=== PATIENT | female | born 1985 | race Caucasian/White ===

== ENCOUNTER 2020-04-07 09:56 | Observation (INO) | payer OTHER ==
[2020-04-07 11:03] VITALS: PULSE 104
[2020-04-07 11:07] LABS: Appearance CLOUDY (CLEAR); Bacteria PACKED /HPF (NEGATIVE); Bilirubin NEGATIVE (NEGATIVE); Blood LARGE Ery/ul (0-5); Epithelial Cells MODERATE /HPF (FEW); Glucose NEGATIVE (NEGATIVE); Ketones SMALL (NEGATIVE); Leukocyte Esterase LARGE (NEGATIVE); Mucus SLIGHT /HPF (NEGATIVE); Nitrite NEGATIVE (NEGATIVE); Protein,Urine Dip 30 (Negative); RBC 51-100 /HPF (0-2); Urobilinogen NEGATIVE mg/dL (0-1); WBC >100 /HPF (0-5)
[2020-04-07 11:33] LABS: Amphetamine,Urine NEGATIVE (NEGATIVE); Barbiturate,Urine NEGATIVE (NEGATIVE); Benzodiazepine,Urine NEGATIVE (NEGATIVE); Cocaine,Urine NEGATIVE (NEGATIVE); Methadone,Urine NEGATIVE (NEGATIVE); Opiate,Urine NEGATIVE (NEGATIVE); PCP,Urine NEGATIVE (NEGATIVE); THC,Urine NEGATIVE (NEGATIVE)
[2020-04-07 12:01] VITALS: BP 132/83
== END 2020-04-07 11:55 | disposition home or self-care (01) ==
LOC: OB 09:56
PROVIDERS: ADMIT Family Medicine; ATTEND Family Medicine
DX: Z34.03 Encounter for supervision of normal first pregnancy, third trimester (principal)
CPT/HCPCS: 80307; 81001; 87086; G0378

== ENCOUNTER 2020-04-07 22:23 | Inpatient (IN) | payer OTHER ==
[2020-04-07] MEDS ORDERED: OMNIPEN 2 GM ONE (22:53)
[2020-04-07] MEDS ORDERED: PITOCIN 30 UNITS/ LR 500 ML 500 ML IV ONE (22:53)
[2020-04-07] MEDS ORDERED: Sodium Chloride 100ML MINI-BAG PLUS 100 ML IV ONE (22:54)
[2020-04-07] MEDS ORDERED: Lactated Ringers 0 ML IV ONE (22:55)
[2020-04-07] MEDS ORDERED: XYLOCAINE 1% HCL 20 ML MDV IJ PRN (23:18)
[2020-04-07] MEDS ORDERED: OMNIPEN 2 GM*** 2 G in Sodium Chloride 100ML MINI-BAG PLUS 100 ML IV ONE (23:18)
[2020-04-07] MEDS ORDERED: XYLOCAINE 1% HCL 20 ML MDV ONE (23:18)
[2020-04-07 23:24] LABS: Absolute Neutrophil Ct (ANC) 16.77 (1.4-6.9); BASOPHIL % 0.1 % (0.0-0.4); Basophil (Absolute #) 0.01 (0-0.4); Eosinophil (Absolute #) 0 (0-0.5); Hematocrit 37.8 % (35-47); Hemoglobin 13.3 gm/dl (12.0-16.0); Lymphocyte (Absolute #) 0.94 (1.0-4.6); Lymphocytes % 5.1 % (24.0-44.0); Mean Cell Volume 91.3 fl (78-100); Mean Corpuscular Hemoglobin 32.1 pg (26-32); Mean Corpuscular Hgb Concent. 35.2 g/dl (32-36); Mean Platelet Volume 11.4 fl (7.5-11.0); Monocyte (Absolute #) 0.62 (0.0-1.3); Monocytes % 3.4 % (0.0-12.0); Neutrophil % 91.4 % (36.0-66.0); Platelet Count 288 K/mm3 (150-450); Red Blood Count 4.14 M/mm3 (4.1-5.4); Red Cell Distribution Width 13.2 % (11.5-14.0); White Blood Count 18.3 K/mm3 (4.0-10.5)
[2020-04-07] MEDS ORDERED: Lactated Ringers 1,000 ML IV SCH (23:30)
[2020-04-07] MEDS ORDERED: PITOCIN 30 UNITS/ LR 500 ML 30 UNITS/500 ML IV.SOLN. IV SCH (23:30)
[2020-04-08] MEDS ORDERED: OMNIPEN 1 GM*** 1 GM in Sodium Chloride 100ML MINI-BAG PLUS 100 ML IV SCH (03:00)
[2020-04-08] MEDS ORDERED: OMNIPEN 1 GM ONE (03:03)
[2020-04-08] MEDS ORDERED: Sodium Chloride 100ML MINI-BAG PLUS 0 ML IV ONE (03:05)
[2020-04-08] MEDS ORDERED: SOD CITRATE-CITRIC ACID SOLN PO ONE (03:08)
[2020-04-08] MEDS ORDERED: Lactated Ringers 1,000 ML IV ONE (03:09)
[2020-04-08] MEDS ORDERED: Reglan 10 MG/2 ML IV SCH (03:15)
[2020-04-08] MEDS ORDERED: Pepcid 20 MG VIAL IV SCH (03:15)
[2020-04-08 03:47] LABS: INR 1.02 (0.8-3.0); PROTIME 11.5 SECONDS (9.95-12.35)
[2020-04-08 03:49] LABS: PTT 26.9 SECONDS (25.3-37.0)
[2020-04-08] MEDS ORDERED: CEFAZOLIN 2 GM-D5W BAG** 2 GM/50 ML ML IV SCH (04:00)
[2020-04-08] MEDS ORDERED: Astramorph-Pf 5 MG/10 ML ONE (04:03)
[2020-04-08 04:08] LABS: ABO TYPING B; Antibody Screen NEGATIVE (NEGATIVE); RH TYPING POSITIVE
[2020-04-08] MEDS ORDERED: SUBLIMAZE 250 MCG/5 ML ONE (04:16)
[2020-04-08] MEDS ORDERED: DIPRIVAN 200 MG/20 ML IV ONE (04:16)
[2020-04-08] MEDS ORDERED: Pitocin 10 UNITS/ML ONE ×2 (04:31→04:55)
[2020-04-08] MEDS ORDERED: Zemuron 100 MG/10 ML ONE (04:34)
[2020-04-08] MEDS ORDERED: Marcaine 0.5%/Epinephrine 10 ML ONE (05:16)
[2020-04-08] MEDS ORDERED: MARCAINE 0.5%-EPI 1:200,000 VL IJ ONE (05:16)
[2020-04-08] MEDS ORDERED: DEMEROL 50 MG ONE (05:47)
[2020-04-08] MEDS ORDERED: TRANDATE 100 MG/20 ML MDV FOR DRIP IV ONE (06:08)
--- NOTE | 2020-04-08 06:40 | PCM.NOTE ---
Date and Time: 04/08/20633 Subjective Assessment: pt arrived in spontaneous labor at 39 2/7 wks EGA, GBS + and was given ampicillin on arrival. she was fiorella regularly on her own with intact membranes. she was 7cm on arrival and quickly progressed to 9cm per nursing. her heart tracing had some variable decelerations but overall good variabili ty, patient pushed for approximately 2 1/2 hours and was unable to delivery vaginally, she did not receive any IV pain meds or epidural during labor. the infant's head was at the perineum, kiwi vaccum was attempted x 2 with pop-off and no improvement in delivery. following these efforts, due to arrest of descent, she was taken to the operating room for primary section. she was unable to sit up for spinal due to discomfort so underwent general anesthesia after she was prepped and draped. upon entry in to uterine cavity was discolored purple and limp and had no respiratory effort present at . the child underwent CPR and was intubated in the OR, received epinephrine x 3 doses total via ET tube and eventually UVC placed by Dr Santoyo ER physician. code was called due to lack of response and was pronounced . the remainder of the section was uncomplicated, there was some blood present in the pastrana cath following surgery which is not unexpected due to low position. of note mother was diagnosed and started on keflex for UTI yesterday. patient declined referral to [facility] for advanced maternal age and declined more invasive genetic testing when offered during the . Objective Exam General Appearance: no apparent distress, other (gravid abdomen on arrival) Respiratory Exam: normal breath sounds, lungs clear, No respiratory distress Cardiovascular Exam: regular rate/rhythm, normal heart sounds Gastrointestinal/Abdomen Exam: soft, No tenderness, No mass Extremity Exam: normal inspection, normal range of motion OBJECTIVE DATA Vital Signs: Vital Signs - 24 hr Temp Pulse Resp BP BP Pulse Ox 04/08/20 04:33 98.3 F 111 H 22 151/78 98 04/07/20 23:30 119 H 20 138/79 98 Lab Results: Lab Results-Last 24 Hours 04/07/20 04/08/20 04/08/20 Range/Units 23:00 00:00 03:28 WBC 18.3 H (4.0-10.5) K/mm3 RBC 4.14 (4.1-5.4) M/mm3 Hgb 13.3 (12.0-16.0) gm/dl Hct 37.8 (35-47) % MCV 91.3 (78-100) fl MCH 32.1 H (26-32) pg MCHC 35.2 (32-36) g/dl RDW 13.2 (11.5-14.0) % Plt Count 288 (150-450) K/mm3 MPV 11.4 H (7.5-11.0) fl Gran % 91.4 H (36.0-66.0) % Eos # (Auto) 0 (0-0.5) Absolute Lymphs (auto) 0.94 L (1.0-4.6) Absolute Monos (auto) 0.62 (0.0-1.3) Lymphocytes % 5.1 L (24.0-44.0) % Monocytes % 3.4 (0.0-12.0) % Eosinophils % 0.0 (0.00-5.0) % Basophils % 0.1 (0.0-0.4) % Absolute Granulocytes 16.77 H (1.4-6.9) Basophils # 0.01 (0-0.4) PT 11.5 (9.95-12.35) SECONDS INR 1.02 (0.8-3.0) APTT 26.9 (25.3-37.0) SECONDS ABO Group B Rh Factor POSITIVE Antibody Screen NEGATIVE (NEGATIVE) Multi-Disciplinary Progress Notes: Multi-Disciplinary Progress Notes 04/08/20 06:03 Respiratory Note by Mima Andrade RT called for standby for delivery. Unable to deliver after pushing for period of time. Physician order to go to [facility]. Immediately after delivery (0435), scores were zero with no heart tones or spontaneous respirations. Warm, dried, stimulated baby. Suctioned mouth and nose. PPV initiated, followed by CPR. No response to PPV. Intubation attempt by RT, unsuccessful. Anesthesia attempt successful with bilateral breath sounds with a 3.0 Et-tube. Epi given via Et-Tub e. Umbilical line placed by physician. Code discontinued at 0458. Initialized on 04/08/20 06:03 - END OF NOTE Assessment/Plan (1) delivery delivered Current Visit: Yes Status: Acute Code(s): O82 - ENCOUNTER FOR DELIVERY WITHOUT INDICATION (2) Delivery outcome of stillborn Current Visit: Yes Status: Acute Code(s): Z37.1 - SINGLE STILLBIRTH
[2020-04-08] MEDS: Dextrose 5%-Lr IV Solution 1000 ML 1,000 ML IV SCH ×3 (06:50→23:22)
[2020-04-08 09:18] LABS: Appearance SLIGHTLY CLOUDY (CLEAR); Bacteria RARE /HPF (NEGATIVE); Bilirubin NEGATIVE (NEGATIVE); Blood LARGE Ery/ul (0-5); Glucose NEGATIVE (NEGATIVE); Ketones MODERATE (NEGATIVE); Leukocyte Esterase NEGATIVE (NEGATIVE); Mucus SLIGHT /HPF (NEGATIVE); Nitrite NEGATIVE (NEGATIVE); Protein,Urine Dip 30 (Negative); Urobilinogen NEGATIVE mg/dL (0-1)
[2020-04-08] MEDS ORDERED: Mylicon 80MG PO PRN (09:18)
[2020-04-08 09:24] LABS: RBC >101 /HPF (0-2)
[2020-04-08] MEDS ORDERED: Nubain 10 MG/ML IV PRN (09:24)
[2020-04-08] MEDS ORDERED: CLARITIN 10 MG PO PRN (09:24)
[2020-04-08] MEDS ORDERED: Zofran 4 MG/2 ML VIAL IV PRN (09:24)
[2020-04-08] MEDS ORDERED: HOLD NARCOTIC ANALGESICS AND SEDATIVES X24 HR MC PRN (09:24)
[2020-04-08] MEDS ORDERED: BENADRYL 50 MG/ML IV PRN (09:24)
[2020-04-08] MEDS ORDERED: Narcan 0.4 MG/ML IV PRN (09:24)
[2020-04-08] MEDS ORDERED: DEMEROL 50 MG IV PRN (09:24)
[2020-04-08] MEDS ORDERED: MORPHINE SULFATE 2 MG INJ IV PRN (09:24)
[2020-04-08] MEDS ORDERED: Dermoplast Spray TP PRN (10:00)
[2020-04-08] MEDS ORDERED: KEFLEX 500 MG PO SCH (10:00)
[2020-04-08] MEDS: TYLENOL EXTRA STRENGTH 500 MG PO PRN ×2 (11:16→20:36)
[2020-04-08] MEDS: ROCEPHIN 1 Gm-D5w 50 ml Bag** 1 G/50 ML IVPB IV SCH (11:17)
[2020-04-08] MEDS: MOTRIN 400 MG PO PRN ×2 (13:06→20:35)
[2020-04-08] MEDS ORDERED: Sodium Chloride 0.9% 10 ML FLUSH Syringe IJ SCH (14:00)
[2020-04-08] MEDS ORDERED: PERCOCET TABLET 5/325MG PO PRN (15:00)
[2020-04-08] MEDS: Colace 100 MG PO SCH (22:31)
[2020-04-09] MEDS: TYLENOL EXTRA STRENGTH 500 MG PO PRN ×4 (00:46→22:16)
[2020-04-09] MEDS: MOTRIN 400 MG PO PRN ×2 (04:08→14:51)
[2020-04-09 06:28] LABS: Absolute Neutrophil Ct (ANC) 16.09 (1.4-6.9); BASOPHIL % 0.1 % (0.0-0.4); Basophil (Absolute #) 0.01 (0-0.4); Eosinophil % 0.1 % (0.00-5.0); Eosinophil (Absolute #) 0.01 (0-0.5); Hematocrit 27.1 % (35-47); Hemoglobin 9.2 gm/dl (12.0-16.0); Lymphocyte (Absolute #) 0.96 (1.0-4.6); Lymphocytes % 5.4 % (24.0-44.0); Mean Cell Volume 94.1 fl (78-100); Mean Corpuscular Hemoglobin 31.9 pg (26-32); Mean Corpuscular Hgb Concent. 33.9 g/dl (32-36); Mean Platelet Volume 10.7 fl (7.5-11.0); Monocyte (Absolute #) 0.79 (0.0-1.3); Monocytes % 4.4 % (0.0-12.0); Platelet Count 244 K/mm3 (150-450); Red Blood Count 2.88 M/mm3 (4.1-5.4); Red Cell Distribution Width 13.8 % (11.5-14.0); White Blood Count 17.9 K/mm3 (4.0-10.5)
[2020-04-09] MEDS: ROCEPHIN 1 Gm-D5w 50 ml Bag** 1 G/50 ML IVPB IV SCH (09:52)
[2020-04-09] MEDS: FERREX 150 PO SCH (09:52)
[2020-04-09] MEDS: Colace 100 MG PO SCH (10:38)
--- NOTE | 2020-04-09 11:17 | PCM.NOTE ---
Date and Time: 04/09/20 1114 Subjective Assessment: mild lochia, pain controlled and feels ok. tolerating po intake and no problems voiding. Objective Exam General Appearance: no apparent distress, alert Respiratory Exam: normal breath sounds, lungs clear, No respiratory distress Cardiovascular Exam: regular rate/rhythm, normal heart sounds Gastrointestinal/Abdomen Exam: other (incision c/d/i, well approximated) Extremity Exam: normal inspection, normal range of motion OBJECTIVE DATA Vital Signs: Vital Signs - 24 hr Temp Pulse Resp BP Pulse Ox 04/09/20 08:00 98.4 F 106 H 18 122/75 04/09/20 06:00 105 H 122/61 98 04/09/20 05:03 106 H 121/70 97 04/09/20 04:00 98.6 F 101 H 18 123/70 106 H 04/09/20 03:00 108 H 20 113/68 97 04/09/20 02:00 98.6 F 104 H 18 132/84 98 04/09/20 01:00 96 H 137/79 98 04/09/20 00:00 110 H 20 138/85 98 04/08/20 23:00 107 H 20 122/73 98 04/08/20 22:00 100 H 18 146/65 97 04/08/20 21:00 98 04/08/20 20:00 98.2 F 141 H 18 141/93 98 04/08/20 17:53 98.3 F 121 H 20 129/87 97 04/08/20 17:00 96 04/08/20 16:00 98.3 F 118 H 20 126/62 04/08/20 15:01 96 04/08/20 14:00 97 04/08/20 13:00 97 04/08/20 12:00 98.2 F 129 H 20 131/74 97 04/08/20 11:57 97 Pain Assessment - Last Documented Pain Intensity [Bilateral 4 Lower] Pain Intensity 4 Pain Scale Used 0-10 Pain Scale Intake and Output: Intake & Output 04/06/20 04/07/20 04/08/20 04/09/20 11:59 11:59 11:59 11:59 Intake Total 2672 4771 Output Total 200 5100 Balance 2472 -329 Weight 79.832 kg Lab Results: Lab Results-Last 24 Hours 04/09/20 Range/Units 05:20 WBC 17.9 H (4.0-10.5) K/mm3 RBC 2.88 L (4.1-5.4) M/mm3 Hgb 9.2 L D (12.0-16.0) gm/dl Hct 27.1 L (35-47) % MCV 94.1 (78-100) fl MCH 31.9 (26-32) pg MCHC 33.9 (32-36) g/dl RDW 13.8 (11.5-14.0) % Plt Count 244 (150-450) K/mm3 MPV 10.7 (7.5-11.0) fl Gran % 90.0 H (36.0-66.0) % Eos # (Auto) 0.01 (0-0.5) Absolute Lymphs (auto) 0.96 L (1.0-4.6) Absolute Monos (auto) 0.79 (0.0-1.3) Lymphocytes % 5.4 L (24.0-44.0) % Monocytes % 4.4 (0.0-12.0) % Eosinophils % 0.1 (0.00-5.0) % Basophils % 0.1 (0.0-0.4) % Absolute Granulocytes 16.09 H (1.4-6.9) Basophils # 0.01 (0-0.4) Assessment/Plan (1) delivery delivered Current Visit: Yes Status: Acute Code(s): O82 - ENCOUNTER FOR DELIVERY WITHOUT INDICATION (2) Delivery outcome of stillborn infant Current Visit: Yes Status: Acute Assessment & Plan: offered emotional support, patient reports the staff has been very supportive and she is coping with the loss, she is understandably sad and tearful. reinforced that there was no obvious cause but something sudden like a cord accident or abruption was most likely and could not have been predicted or prevented. Code(s): Z37.1 - SINGLE STILLBIRTH
[2020-04-10] MEDS: Colace 100 MG PO SCH ×2 (02:01→10:57)
--- NOTE | 2020-04-10 09:03 | PCM.DS ---
Discharge Summary Date of Admission: 04/07/20 22:23 Admitting Physician: EDIN PEPE Consults: Consults on Case 04/08/20 03:08 Notify Anesthesia Provider ROUTINE 04/08/20 09:25 Notify Anesthesia Provider PRN Primary Care Provider: CAL CAAL Allergies Allergies No Known Drug Allergies Allergy (Verified 04/08/20 18:43) Hospital Summary - Hospital Course Hospital Course: patient admitted with near complete dilation in labor, progressed to complete and unable to delivery vaginally. taken for section and baby was blow with no pulse or respiratory effort at . resuscitation efforts were uns uccessful. she has done well post-operatively, no fever. - Vitals & Intake/Output Vital Signs: Vital Signs Temperature 97.8 F 04/10/20 01:50 Pulse Rate 92 H 04/10/20 01:50 Respiratory Rate 18 04/10/20 01:50 Blood Pressure 126/62 04/10/20 01:50 O2 Sat by Pulse Oximetry 97 04/10/20 01:50 Intake & Output: Intake & Output 04/07/20 04/08/20 04/09/20 04/10/20 11:59 11:59 11:59 11:59 Intake Total 2672 4771 520 Output Total 200 5100 Balance 2472 -329 520 Weight 79.832 kg 176 kg - Lab Result Diagrams: 04/09/20 05:20 Micro Results-Entire Visit: Microbiology 04/08/20 04:23 Urine Culture - Final Urine, Catheterized NO GROWTH - Procedures and Test Procedures and Tests throughout Hospitalization: Therapy Orders & Screens 04/08/20 06:01 Standby ROUTINE Comment: Diagnosis: OB check 04/08/20 06:15 EKG ONCE Comment: Diagnosis: OB check Discharge Exam General Appearance: no apparent distress, alert Respiratory Exam: normal breath sounds, lungs clear, No respiratory distress Cardiovascular Exam: regular rate/rhythm, normal heart sounds Gastrointestinal/Abdomen Exam: other (incision clean,dry, intact and well approximated) Extremity Exam: normal inspection, normal range of motion Skin Exam: normal color, warm, dry Final Diagnosis/Problem List - Final Discharge Diagnosis/Problem (1) delivery delivered Current Visit: Yes Status: Acute Assessment & Plan: f/u 1 week, discussed incision care Code(s): O82 - ENCOUNTER FOR DELIVERY WITHOUT INDICATION (2) Delivery outcome of stillborn infant Current Visit: Yes Status: Acute Code(s): Z37.1 - SINGLE STILLBIRTH (3) UTI (urinary tract infection) Current Visit: Yes Status: Acute Assessment & Plan: culture was negative Code(s): N39.0 - URINARY TRACT INFECTION, SITE NOT SPECIFIED - Discharge Disposition: Home, Self-Care Condition: Stable Prescriptions: [place] Polysaccharides Complex [Ferrex 150] 150 mg PO DAILY #30 capsule Hydrocodone/APAP 5-325 Tab^^^ [[place] 5-325 Tablet^^^] 1 tab PO Q6HPRN PRN #20 tablet MDD 6 PRN Reason: Pain Continue Vit#96/Ferrous Fum/FA [ Tablet] 1 tab PO DAILY Discontinued Cephalexin Mh 500 mg [Keflex 500 mg] 500 mg PO QID Follow up with: CAL CAAL MD [Primary Care Provider] - 1 Week
[2020-04-10 09:57] VITALS: BP 133/72; PULSE 119; O2SAT 98
--- NOTE | 2020-04-10 10:46 | OP ---
SURGERY DATE/TIME: 04/08/2020 0413 PREOPERATIVE DIAGNOSES: 1) Term intrauterine . 2) Arrest of descent. POSTOPERATIVE DIAGNOSES: 1) Term intrauterine . 2) Arrest of descent. 3) demise. PROCEDURE: Primary low transverse section. SURGEON: Ruy Salguero M.D. ANESTHESIA: General by Steve Hunt CRNA. ESTIMATED BLOOD LOSS: 400 ml. URINE OUTPUT: 200 ml of blood-tinged urine in the Franco. SPECIMEN: Placenta was sent for pathology. DESCRIPTION OF PROCEDURE: The patient is a 34 year-old 1, para 0 who arrived in spontaneous labor at approximately 7 cm dilatation per nursing report. She progressed to 9 cm dilatation fairly rapidly and had no anesthesia during the labor process. She progress to full dilatation and was unsuccessful delivering vaginally. After approximately two and a half hours of pushing with inability to deliver I called the operating team to perform section. She was unable to sit up to tolerate spinal anesthesia in the operating room upon arrival therefore decision was made to proceed with general anesthesia. After she underwent general anesthetic, a low transverse skin incision was made by knife and carried down through the subcutaneous fat to the level of the fascia. The fascia was nicked on both sides of the midline and extended in horizontal using curved Fairchild scissors. The superior free edge of the fascia was grasped with Raj clamps and the underlying rectus muscles were dissected free and the same was repeated inferiorly. The peritoneal cavity was opened and extended in horizontal bluntly. A bladder blade was inserted after a bladder flap was created and reflected over the lower uterine segment. Horizontal uterine incision was made by knife and carried down to the level of the amniotic membranes which were carefully artificially ruptured. A male in the vertex presentation was encountered upon entry and was noted to have blue and purple discoloration to the skin upon entry into the uterine cavity diffusely. There was some difficulty in delivering him from the vertex presentation due to low position in the pelvis from previous labor and pushing. Therefore the uterine incision was extended superiorly in a barney fashion with bandage scissors and the infant was delivered from the vertex presentation. The cord was clamped and cut and he was quickly handed off to the awaiting nursery team as there was no movement and no respiratory effort present at delivery. The placenta was manually extracted and the uterus was exteriorized. The uterus was sponge curetted clean with lap sponge and then the uterine incision was closed with 0 chromic in a running locked fashion. Good hemostasis and good closure were achieved. Posterior cul-de-sac was wiped free of blood and clot with a moist lap sponge and then the uterus was returned to the peritoneal cavity. The lateral gutters were wiped free of blood and clot. The uterine incision was inspected and noted to be hemostatic. Next, the fascia was closed with 0 Vicryl in a running fashion with good closure and good hemostasis. The subcutaneous fat was irrigated with warm, sterile saline and any areas of bleeding were cauterized with electrocautery. Finally, the skin layer was closed with 4-0 undyed Vicryl in a running subcuticular fashion. Steri-Strips and occlusive dressing were placed over the incision. The patient was extubated and taken to the recovery room in excellent condition.
[2020-04-10] MEDS: FERREX 150 PO SCH (10:51)
== END 2020-04-10 12:20 | disposition home or self-care (01) | DRG 786 ==
LOC: OBSVTOIN 22:23 → OB 22:23 → MED SURG 04-09 22:32
PROVIDERS: ADMIT Family Medicine; ATTEND Family Medicine
PROC: 10D00Z1 Extraction of Products of Conception, Low, Open Approach (ICD-10-PCS; principal; 2020-04-08)
DX: O75.0 Maternal distress during labor and delivery (principal); O75.3 Other infection during labor; O62.1 Secondary uterine inertia; Z3A.39 39 weeks gestation of pregnancy; Z37.1 Single stillbirth
CPT/HCPCS: 31500; 36415; 64488; 76937; 76942; 80307; 81001; 85025; 85610; 85730; 86850; 86900; 86901; 87086; 87340; 88307; 93005; 94799; 99140; G0378; J0290; J0690; J0696; J2175; J2274; J2405; J2590; J2704; J3010; A9270-GY

== ENCOUNTER 2021-07-18 14:54 | Emergency (ER) | payer OTHER ==
--- NOTE | 2021-07-18 15:02 | ERPHSYRPT ---
- History of Present Illness Time Seen by Provider: 07/18/21 15:01 Source: patient Exam Limitations: no limitations Physician History: This is a 35-year-old white female who had been having complaints of mild cough and diarrhea. She had mild myalgias and arthralgias. Symptoms have been persistent. She has had no nausea vomiting. However she has had diarrhea. She denies chest pain. She has no shortness of breath. She has had no fevers. Her spouse has similar symptoms. Patient states she has been eating and drinking. Timing/Duration: week(s) (1) Severity: mild Associated Symptoms: cough (Mild), weakness, No nausea, No vomiting, No abdominal pain, No shortness of breath (Mild), No chest pain Allergies/Adverse Reactions: No Known Drug Allergies Allergy (Verified 04/08/20 18:43) Travel Risk - International Travel Have you traveled outside of the country in past 3 weeks: No - Coronavirus Screening Are you exhibiting any of the following symptoms?: Yes Symptoms: Cough: New Onset, Shortness of Breath, Vomiting/Diarrhea, Headaches/Body Aches/Fatigue Close contact with a COVID-19 positive Pt in past 14-21 Days: No - Review of Systems Constitutional: Weakness Eyes: No Symptoms Ears, Nose, & Throat: No Symptoms Respiratory: Cough Cardiac: No Symptoms Abdominal/Gastrointestinal: Diarrhea, No Abdominal Pain, No Nausea, No Vomiting Genitourinary Symptoms: No Symptoms Musculoskeletal: No Symptoms, Arthralgias, Myalgias Skin: No Symptoms Neurological: No Symptoms Psychological: No Symptoms Endocrine: No Symptoms Hematologic/Lymphatic: No Symptoms Immunological/Allergic: No Symptoms All Other Systems: Reviewed and Negative - Past Medical History Pertinent Past Medical History: No Other Medical History: Patient denies any of the above. - Past Surgical History Past Surgical History: Yes Neuro Surgical History: No Pertinent History Cardiac: No Pertinent History Respiratory: No Pertinent History Gastrointestinal: No Pertinent History Genitourinary: No Pertinent History Musculoskeletal: No Pertinent History Female Surgical History: No Pertinent History - Social History Smoking Status: Never smoker Exposure to second hand smoke: No Drug Use: none - Nursing Vital Signs Nursing Vital Signs: Initial Vital Signs Temperature 100.8 F 07/18/21 15:23 Pulse Rate 121 H 07/18/21 15:23 Respiratory Rate 24 07/18/21 15:23 Blood Pressure 147/95 07/18/21 15:23 O2 Sat by Pulse Oximetry 96 07/18/21 15:23 Pain Scale Pain Intensity 0 - Physical Exam General Appearance: no apparent distress, alert, anxiety, obese Eye Exam: PERRL/EOMI, eyes nml inspection Ears, Nose, Throat Exam: normal ENT inspection, moist mucous membranes Neck Exam: normal inspection, non-tender, supple, full range of motion Respiratory Exam: normal breath sounds, lungs clear, airway intact, No chest tenderness, No respiratory distress Cardiovascular Exam: normal peripheral pulses, tachycardia Gastrointestinal/Abdomen Exam: soft, normal bowel sounds, No tenderness Pelvic Exam: not done Rectal Exam: not done Back Exam: normal inspection, normal range of motion, No CVA tenderness, No vertebral tenderness Extremity Exam: normal inspection, normal range of motion, pelvis stable Neurologic Exam: alert, oriented x 3, cooperative, pharmacy technician instructor II-XII nml as tested, normal mood/affect, nml cerebellar function, nml station & gait, sensation nml Skin Exam: normal color, warm, dry Lymphatic Exam: No adenopathy SpO2 Interpretation: normal O2 Delivery: Room Air - Course Nursing assessment & vital signs reviewed: Yes Ordered Tests: Active Orders 24 hr Category Date Time Status INFLUENZA A+B CARMEN Stat Lab 07/18/21 16:25 Completed Lab/Rad Data: Laboratory Results 07/18/21 07/18/21 Range/Units 16:26 16:25 Influenza Type A Ag NEGATIVE (NEGATIVE) Influenza Type B Ag NEGATIVE (NEGATIVE) Group A Strep Antibody NOT DETECTED (NEGATIVE) - Progress Progress: unchanged Counseled pt/family regarding: lab results, diagnosis, need for follow-up - Departure Departure Disposition: Home Clinical Impression: Diarrhea, Viral illness Condition: Stable Critical Care Time: No Referrals: CAL CAAL MD [Primary Care Provider] - Follow up/PCP as directed Additional Instructions: May fill the Flagyl prescription once you drop off the stool specimen and if your symptoms persist beyond the next 48 hours. Drink plenty of fluids. Take your medication as prescribed. Follow-up with your primary care physician for persistent symptoms. Bring in a stool specimen for evaluation. Take it to the [facility] lab. Prescriptions: Metronidazole 500 mg [Flagyl 500 MG] 500 mg PO TID #21 tablet
[2021-07-18 17:11] LABS: INFLUENZA A NEGATIVE (NEGATIVE); INFLUENZA B NEGATIVE (NEGATIVE)
[2021-07-18 17:20] VITALS: BP 140/90; PULSE 113; O2SAT 98
== END 2021-07-18 18:03 | disposition home or self-care (01) ==
LOC: ED 14:54
DX: B34.9 Viral infection, unspecified (principal); R19.7 Diarrhea, unspecified; R05.9 Cough, unspecified; M79.10 Myalgia, unspecified site
CPT/HCPCS: 87400; 87651; 99283; U0003